=== PATIENT | male | born 1985 | race Caucasian/White ===

== ENCOUNTER 2020-05-07 05:49 | Emergency (ER) | payer OTHER ==
[~2020-05-07] VITALS: Ht 185.4 cm; Wt 90.7 kg
[~2020-05-07 05:49] MED LIST: IBUPROFEN600 MG ORAL
[2020-05-07 06:00] VITALS: BP 137/77
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
[2020-05-07 06:38] VITALS: BP 137/77
--- NOTE | 2020-05-07 07:03 | Diagnostic Imaging Report ---
EXAM: XR Right Shoulder Complete, 2 or More Views CLINICAL HISTORY: INJ TECHNIQUE: Two or more views of the right shoulder. COMPARISON: No relevant prior studies available. FINDINGS: Bones/joints: Unremarkable. No acute fracture. No dislocation. Soft tissues: Unremarkable. IMPRESSION: Normal right shoulder x-rays.
== END 2020-05-07 06:38 ==
LOC: EMR 05:57
DX: S40.011A Contusion of right shoulder, initial encounter (principal); Y35.893A Legal intervention involving other specified means, suspect injured, initial encounter; Y92.9 Unspecified place or not applicable; Z02.89 Encounter for other administrative examinations
CPT/HCPCS: 99283